=== PATIENT | male | born 1995 | race Two or more races ===

== ENCOUNTER 2020-11-05 13:18 | Emergency (ER) | payer BC ==
[~2020-11-05] VITALS: Ht 188 cm; Wt 86.2 kg
== END 2020-11-05 19:22 | disposition home or self-care (01) ==
LOC: ER 13:18
DX: S61.442A Puncture wound with foreign body of left hand, initial encounter (principal); W45.8XXA Other foreign body or object entering through skin, initial encounter; Y92.89 Other specified places as the place of occurrence of the external cause; Z98.890 Other specified postprocedural states